=== PATIENT | male | born 1980 | race Caucasian/White ===

== ENCOUNTER → 2016-12-16 | Outpatient (CLI) | payer BC ==
[2016-12-16 11:56] VITALS: BP 147/84
== END ==
LOC: MHUC 11:31
PROVIDERS: ATTEND Nurse Practitioner
DX: H00.031 Abscess of right upper eyelid (principal)
CPT/HCPCS: 99213

== ENCOUNTER 2016-12-17 08:46 | Emergency (ER) | payer BC ==
[~2016-12-17] VITALS: Ht 180.3 cm; Wt 77.0 kg
[2016-12-17] MEDS ORDERED: methylPREDNISolone 125 MG (Solu-MEDROL) VIAL IM ONE (09:50)
[2016-12-17] MEDS ORDERED: diphenhydrAMINE 50 MG (BENADRYL) CAPSULE PO ONE (09:50)
[2016-12-17] MEDS ORDERED: SULFAMETHOXAZOLE/TRIMETHOPRIM 800-160 MG (SEPTRA DS) TAB PO ONE (09:50)
[2016-12-17 10:07] VITALS: BP 149/80
== END 2016-12-17 10:07 | disposition home or self-care (01) ==
LOC: ED 08:47
DX: T36.1X5A Adverse effect of cephalosporins and other beta-lactam antibiotics, initial encounter (principal); R60.0 Localized edema; L73.9 Follicular disorder, unspecified
CPT/HCPCS: 96372; 99282; J2930; 99283